=== PATIENT | female | born 1955 | race Caucasian/White ===

== ENCOUNTER 2021-10-17 18:27 | Inpatient (IN) | payer OTHER ==
[~2021-10-17] VITALS: Ht 170.2 cm; Wt 75.0 kg
[2021-10-17 18:54] LABS: BASOPHILS ABSOLUTE AUTO 0.02 K/mm3 (0.00-0.23); BASOPHILS PERCENT AUTO 0 % (0-2); EOSINOPHILS PERCENT AUTO 0 % (0-6); Hematocrit 46.1 % (33.0-51.0); Hemoglobin 15.4 g/dL (11.5-16.0); IMMATURE GRAN ABSOLUTE AUTO 0.11 K/mm3 (0.00-0.10); IMMATURE GRAN PERCENT AUTO 1 % (0-1); LYMPHOCYTES ABSOLUTE AUTO 0.58 K/mm3 (0.84-5.20); LYMPHOCYTES PERCENT AUTO 3 % (21-46); MONOCYTES ABSOLUTE AUTO 0.11 K/mm3 (0.16-1.47); MONOCYTES PERCENT AUTO 1 % (4-13); Mean Corpuscular HGB 31.2 pg (26.0-34.0); Mean Corpuscular HGB Conc 33.4 g/dL (31.5-36.5); Mean Corpuscular Volume 94 fL (80-100); Mean Platelet Volume 9.4 fL (9.1-12.4); NEUTROPHILS PERCENT AUTO 96 % (41-73); Platelet Count 238 K/mm3 (150-400); RDW Coefficient Variation 14.2 % (11.7-14.2); RDW Standard Deviation 48.9 fL (35.1-46.3); Red Blood Cell Count 4.93 M/mm3 (3.80-5.20); White Blood Cell Count 19.12 K/mm3 (4.00-11.30)
[2021-10-17 18:57] LABS: Base Excess Venous -3.2 mmol/L; Bicarbonate Venous 23.1 mmol/L (24.0-30.0); PCO2 Venous 28.5 mmHg (38-42); PO2 Venous 164 mmHg (38-42); pH Blood Venous 7.47 (7.34-7.37)
[2021-10-17 19:17] LABS: Anion Gap 10 mmol/L (6-16); Blood Urea Nitrogen 27 mg/dL (8-24); Bun/Creatinine Ratio 19.3 (12.0-20.0); CO2, Blood 24 mmol/L (21-32); Calcium, Blood 9.4 mg/dL (8.5-10.1); Chloride, Blood 105 mmol/L (98-108); Glomerular Filtration Rate 38 (60-); Glucose, Blood 197 mg/dL (70-99); Potassium, Blood 4.3 mmol/L (3.5-5.5); Sodium, Blood 139 mmol/L (136-145); Troponin I <0.015 ng/mL (0.000-0.040)
[2021-10-17 19:36] LABS: Influenza A, PCR NEGATIVE (NEGATIVE); Influenza B, PCR NEGATIVE (NEGATIVE); Resp Syncytial Virus, PCR NEGATIVE (NEGATIVE); SARS-Cov-2 (COVID-19) PCR, MMC NEGATIVE (NEGATIVE)
[2021-10-17] MEDS ORDERED: ELIQUIS2.5 MG PO (19:49)
[2021-10-17] MEDS ORDERED: GUAI600T33 PO (19:50)
[2021-10-17] MEDS ORDERED: METO100 PO (19:50)
[2021-10-17] MEDS ORDERED: ASPIR 8181 M1 PO (19:50)
[2021-10-17] MEDS ORDERED: CALCIUM 600 +1 EA11 PO (19:50)
[2021-10-17] MEDS ORDERED: ATOR40TA PO (19:51)
[2021-10-17] MEDS ORDERED: AMLO10 PO (19:51)
[2021-10-17] MEDS ORDERED: IPRAT-ALBUT 0.5-3 ML INH (19:51)
[2021-10-17] MEDS ORDERED: ANORO ELLIPTA1 EACH INH (19:51)
[2021-10-17] MEDS ORDERED: ALBU90OI INH (19:52)
[2021-10-17] MEDS ORDERED: ALPR.25 PO (19:53)
[2021-10-17] MEDS ORDERED: HYDR1TAB94 PO (19:54)
--- NOTE | 2021-10-18 01:18 | NUR ---
PT ARRIVED TO 341 VIA GURNEY. PT TRANSFERRED SELF TO BED AND THEN USED THE BATHROOM. PT SOB DURING AMBULATION TO THE BATHROOM. ENCOURAGED PT TO USED THE BSC NEXT TIME. PT ON 2L AT THIS TIME. A/O. ABLE TO STATE NEEDS APPROPRIATELY. PT ORIENTED TO ROOM AND CALL LT. WILL CONTINUE TO PROVIDE CARE T/O SHIFT.
--- NOTE | 2021-10-18 03:51 | NUR ---
SHIFT SUMMARY: PT STATES SHE FEELS MUCH BETTER SINCE COMING IN. BREATHING SO MUCH BETTER AFTER THE TREATMENTS. STILL SOB WITH ACTIVITY. CURRENTLY ON 2L. ON TELE SINUS TACH 101. NO COMPLAINTS OF CP. PT IS HOPING TO BE DISCHARGED LATER TODAY. A/O. NO ACUTE CHANGES. WILL CONTINUE TO PROVIDE CARE UNTIL SHIFT REPORT. CALL LT IN [place].
[2021-10-18 06:41] LABS: Bun/Creatinine Ratio 26.2 (12.0-20.0); Calcium, Blood 8.9 mg/dL (8.5-10.1); Creatinine, Blood 1.3 mg/dL (0.40-1.00); Potassium, Blood 4.1 mmol/L (3.5-5.5)
[2021-10-18] MEDS ORDERED: ALBU2.5V5 INH (16:04)
[2021-10-18] MEDS ORDERED: FLUTICASONE-SA1 EAC9 INH (16:06)
[2021-10-18] MEDS ORDERED: Prednisone10 MG (16:07)
--- NOTE | 2021-10-18 17:30 | NUR ---
DISCHARGE HOME NOTE PATIENT IS AAOX4. VERY ADAMENT THAT SHE WANTS TO GO HOME AND APPEARS VERY ANXIOUS AND KEEPS REMOVING HER O2 AND GETTING SOB ON ANY EXERTION OR ACTIVITY. SATS ON ROOM AIR ARE 88. PANTING AND HAD TO GET HER TO REST AND CALM DOWN FOR HER TO CATCH HER BREATH. O2 PLACED AT 3L BNC AND SATS NOW ARE 93%. FAMILY BROUGHT HER PORTABLE O2 TANK TO THE FLOOR FOR DC HOME. WENT OVER DC PAPERS WITH HER AND ANSWERED QUESTIONS APPROPREIOTLY. DISCUSSED TO CONTINUE KALYN RECEIVED ON YESTERDAY FROM THE PREVVIOUS ER AND MINIMIAL ACTIVITY. VSS. NAD NOTED. 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 INSTRUCTED BEST FOR SOMEONE ELSE TO DRIVE BUT SHE DECLINED.
== END 2021-10-18 16:46 | disposition home or self-care (01) | DRG 189 ==
LOC: ER 18:27 → MEDS 23:54
PROVIDERS: Student in an Organized Health Care Education/Training Program; ADMIT Internal Medicine
PROC: 5A09357 Assistance with Respiratory Ventilation, Less than 24 Consecutive Hours, Continuous Positive Airway Pressure (ICD-10-PCS; principal; 2021-10-17)
DX: J96.21 Acute and chronic respiratory failure with hypoxia (principal); J44.1 Chronic obstructive pulmonary disease with (acute) exacerbation; Z20.822 Contact with and (suspected) exposure to COVID-19; I10 Essential (primary) hypertension; D72.829 Elevated white blood cell count, unspecified; T38.0X5A Adverse effect of glucocorticoids and synthetic analogues, initial encounter; J96.02 Acute respiratory failure with hypercapnia; I12.9 Hypertensive chronic kidney disease with stage 1 through stage 4 chronic kidney disease, or unspecified chronic kidney disease; Z99.81 Dependence on supplemental oxygen; N18.30 Chronic kidney disease, stage 3 unspecified; Z95.5 Presence of coronary angioplasty implant and graft; Z87.891 Personal history of nicotine dependence; Z88.5 Allergy status to narcotic agent; Z79.01 Long term (current) use of anticoagulants; Z79.899 Other long term (current) drug therapy; Z85.830 Personal history of malignant neoplasm of bone; Z92.3 Personal history of irradiation; Z86.718 Personal history of other venous thrombosis and embolism; Z79.82 Long term (current) use of aspirin
CPT/HCPCS: 0241U; 36415; 71045; 80048; 82803; 82947; 84484; 85025; 93005; 93010; 94640; 94644; 94660; 94667; 94760; 94761; 96365; 96366; 96375; 99285-25; A9270; J2930; J3475; J7030